=== PATIENT | female | born 1955 | race Caucasian/White ===

== ENCOUNTER 2021-05-15 09:05 | Emergency (ER) | payer MEDICARE, BC ==
[~2021-05-15] VITALS: Ht 172.7 cm; Wt 88.6 kg
[~2021-05-15 09:05] MED LIST: HYDROCHLOROT12.5 M1 PO; LEVAQUIN500 MG PO; LEVOTHYROXIN75 MC1 PO; METOPROLOL SUC100 MG PO
[2021-05-15 12:14] LABS: HEMATOCRIT 33.2 % (37.0-47.0); IMMATURE GRANULOCYTES 0.3 % (0.0-5.0); MEAN CORPUSCULAR HGB 24.7 pG CALC (26.0-32.0); MEAN CORPUSCULAR HGB CONC 30.1 g/dL CAL (32.0-36.0); NEUT# 12.12 thou/uL (2.00-7.15); RED BLOOD COUNT 4.05 mill/uL (4.20-5.60); RED CELL DISTRI WIDTH 14.3 % (11.5-15.5)
[2021-05-15 12:34] LABS: ALKALINE PHOSPHATASE 85 u/l (38-126); ANION GAP 13 (6-22 (CALC)); BILIRUBIN, TOTAL 0.4 mg/dL (0.0-1.4); BUN 16 mg/dL (8-23); BUN/CREATININE RATIO 19 (12-20 (CALC)); CARBON DIOXIDE 27 mmol/l (22-30); CHLORIDE 101 mmol/l (95-108); CREATININE 0.8 mg/dL (0.5-1.0); GFR > 60 ML/MIN (>=60 (CALC)); GFR FOR AFR.AMER. > 60 ML/MIN (>=60 (CALC)); POTASSIUM 3.6 mmol/l (3.5-5.1); SGOT/AST 33 u/l (9-36); SODIUM 137 mmol/l (137-146); TOTAL PROTEIN 6.4 g/dL (6.3-8.2)
[2021-05-15 12:40] LABS: ALBUMIN 3.4 g/dL (3.2-5.0)
[2021-05-15] MEDS ORDERED: ZPAK PO (12:57)
[2021-05-15] MEDS ORDERED: AMOX/K CLAV875 M1 PO (12:57)
[2021-05-15] MEDS ORDERED: ONDANSETRON4 MG PO (12:57)
[2021-05-15 13:00] VITALS: BP 121/68
== END 2021-05-15 13:05 | disposition home or self-care (01) ==
LOC: ED 09:05
PROVIDERS: Family Medicine
DX: J18.9 Pneumonia, unspecified organism (principal); I10 Essential (primary) hypertension; M06.9 Rheumatoid arthritis, unspecified; Z86.16 Personal history of COVID-19; Z20.822 Contact with and (suspected) exposure to COVID-19

== ENCOUNTER 2021-09-07 10:11 | Emergency (ER) | payer MEDICARE, BC ==
[~2021-09-07] VITALS: Ht 172.7 cm; Wt 88.6 kg
[~2021-09-07 10:11] MED LIST changes: +AMOX/K CLAV875 M1 PO; +ONDANSETRON4 MG PO; +ZPAK PO
[2021-09-07 10:28] VITALS: BP 188/92
== END 2021-09-07 13:07 | disposition home or self-care (01) ==
LOC: ED 10:11
DX: S42.292A Other displaced fracture of upper end of left humerus, initial encounter for closed fracture (principal); I10 Essential (primary) hypertension; M06.9 Rheumatoid arthritis, unspecified; W19.XXXA Unspecified fall, initial encounter; Y92.009 Unspecified place in unspecified non-institutional (private) residence as the place of occurrence of the external cause